=== PATIENT | female | born 1965 | race Caucasian/White ===

== ENCOUNTER 2019-05-01 11:00 | Outpatient (RCR) | payer SELFPAY | END 2019-05-31 00:01 | LOC: CR 11:00 | PROVIDERS: Family Provider Nurse Practitioner Family; Referring Provider Internal Medicine Cardiovascular Disease; Visit Provider Internal Medicine Cardiovascular Disease | DX: I25.2 Old myocardial infarction (principal) ==

== ENCOUNTER 2019-06-08 13:39 | Outpatient (RCR) | payer SELFPAY | END 2019-07-01 23:59 | disposition home or self-care (01) | LOC: CR 13:39 | PROVIDERS: Family Provider Nurse Practitioner Family; PCP Nurse Practitioner Family; Referring Provider Internal Medicine Cardiovascular Disease; Visit Provider Internal Medicine Cardiovascular Disease | DX: I25.2 Old myocardial infarction (principal) ==

== ENCOUNTER 2019-07-04 14:47 | Outpatient (RCR) | payer SELFPAY | END 2019-07-30 23:59 | disposition home or self-care (01) | LOC: CR 14:47 | PROVIDERS: Referring Provider Internal Medicine Cardiovascular Disease; Visit Provider Internal Medicine Cardiovascular Disease | DX: I25.2 Old myocardial infarction (principal) ==

== ENCOUNTER → 2019-11-15 09:15 | Outpatient (BNVA) | payer MEDICAID, SELFPAY | PROVIDERS: PCP Nurse Practitioner Family; Visit Provider Nurse Practitioner Family | DX: Z12.31 Encounter for screening mammogram for malignant neoplasm of breast (principal); I10 Essential (primary) hypertension; B37.2 Candidiasis of skin and nail | CPT/HCPCS: 80053; 80061; 84443; 85025 ==

== ENCOUNTER 2019-11-30 14:28 | Outpatient (RCR) | payer SELFPAY | END 2019-12-30 23:59 | disposition home or self-care (01) | LOC: CR 14:28 | PROVIDERS: PCP Nurse Practitioner Family; Referring Provider Internal Medicine Cardiovascular Disease; Visit Provider Internal Medicine Cardiovascular Disease | DX: I25.2 Old myocardial infarction (principal) ==

== ENCOUNTER 2020-01-02 11:28 | Outpatient (RCR) | payer SELFPAY | END 2020-01-30 23:59 | disposition home or self-care (01) | LOC: CR 11:28 | PROVIDERS: PCP Nurse Practitioner Family; Referring Provider Internal Medicine Cardiovascular Disease; Visit Provider Internal Medicine Cardiovascular Disease | DX: I25.2 Old myocardial infarction (principal) ==

== ENCOUNTER 2020-01-23 11:39 | Outpatient (CLI) | payer MEDICAID, SELFPAY ==
--- NOTE | 2020-01-23 14:00 | MM_ITS ---
WS: [id number] BILATERAL DIGITAL SCREENING MAMMOGRAM WITH CAD CLINICAL INFORMATION: breast cancer screening HISTORY: Screening mammogram. No current complaints. COMPARISON: TECHNIQUE: Bilateral CC and MLO views. FINDINGS: Fatty-replaced breasts bilaterally. No suspicious focal mass, asymmetry, calcifications, or sap integration architect ural distortion. No evidence of malignancy. A few stable intramammary lymph nodes. MM/[id number] IMPRESSION: BI-RADS: 2-Benign FOLLOW UP: 1 Year Follow-up Recommend return to annual screening mammography.
== END 2020-01-23 11:40 | disposition home or self-care (01) ==
LOC: RADSHAW 11:45
PROVIDERS: PCP Nurse Practitioner Family; Visit Provider Nurse Practitioner Family
DX: Z12.31 Encounter for screening mammogram for malignant neoplasm of breast (principal)
CPT/HCPCS: 77067

== ENCOUNTER 2020-02-16 14:32 | Outpatient (RCR) | payer SELFPAY | END 2020-02-29 23:59 | disposition home or self-care (01) | LOC: CR 14:32 | PROVIDERS: PCP Nurse Practitioner Family; Referring Provider Internal Medicine Cardiovascular Disease; Visit Provider Internal Medicine Cardiovascular Disease | DX: I21.9 Acute myocardial infarction, unspecified (principal) ==

== ENCOUNTER 2020-03-08 10:51 | Outpatient (RCR) | payer SELFPAY | END 2020-03-31 23:59 | disposition home or self-care (01) | LOC: CR 10:51 | PROVIDERS: PCP Nurse Practitioner Family; Referring Provider Internal Medicine Cardiovascular Disease; Visit Provider Internal Medicine Cardiovascular Disease | DX: Z95.1 Presence of aortocoronary bypass graft (principal) ==

== ENCOUNTER 2020-05-03 11:00 | Outpatient (RCR) | payer SELFPAY | END 2020-05-31 23:59 | disposition home or self-care (01) | LOC: CR 11:00 | PROVIDERS: PCP Nurse Practitioner Family; Referring Provider Internal Medicine Cardiovascular Disease; Visit Provider Internal Medicine Cardiovascular Disease | DX: Z95.1 Presence of aortocoronary bypass graft (principal) ==

== ENCOUNTER → 2020-05-11 10:00 | Outpatient (BNVA) | payer MEDICAID, SELFPAY | PROVIDERS: PCP Nurse Practitioner Family; Visit Provider Internal Medicine Cardiovascular Disease | DX: I48.11 Longstanding persistent atrial fibrillation (principal); I10 Essential (primary) hypertension; I25.10 Atherosclerotic heart disease of native coronary artery without angina pectoris; I25.5 Ischemic cardiomyopathy; R06.02 Shortness of breath | CPT/HCPCS: 80053; 80061 ==

== ENCOUNTER 2020-05-30 12:45 | Outpatient (CLI) | payer MEDICAID, SELFPAY ==
--- NOTE | 2020-05-30 13:30 | USCV_ITS ---
Angie Rosales Age: 55 Gender: F : 1965 Exam Date: 05/30/2020 13:29 Ordering Phys: Albert Suárez MD ([email or web address]) Technologist: Freda Velez Exam Location: [facility] – [place] Indication: SOB BP: / HR: 60 Rhythm: Sinus Technical Quality: Adequate MEASUREMENTS (Male / Female) Normal Values 2D ECHO LV Diastolic Diameter PLAX 4.7 cm 4.2 - 5.9 / 3.9 - 5.3 cm LV Systolic Diameter PLAX 3.7 cm LV Chamber Size 4.6 cm IVS Diastolic Thickness 1.2 cm 0.6 - 1.0 / 0.6 - 0.9 cm IVS Systolic Thickness 1.7 cm LVPW Diastolic Thickness 1.3 cm 0.6 - 1.0 / 0.6 - 0.9 cm LVPW Systolic Thickness 1.7 cm RV Chamber Size 3.6 cm LVOT Diameter 2.1 cm LV Ejection Fraction 2D Teich 43.7 % LV Ejection Fraction MOD 2C 70.1 % LV Ejection Fraction 2C AL 72.2 % LA Diameter 3.8 cm LA Width 3.2 cm LA Height 5.5 cm RA Width 4.4 cm RA Height 5.0 cm Aorta at Sinotubular Diameter 3.6 cm M-MODE LV Diastolic Diameter MM 6.3 cm 4.2 - 5.9 / 3.9 - 5.3 cm LV Systolic Diameter MM 4.7 cm LV Ejection Fraction MM Teich 50.8 % IVS Diastolic Thickness MM 1.1 cm 0.6 - 1.0 / 0.6 - 0.9 cm IVS Systolic Thickness MM 1.5 cm LVPW Diastolic Thickness MM 1.5 cm 0.6 - 1.0 / 0.6 - 0.9 cm LVPW Systolic Thickness MM 1.8 cm RV Diastolic Diameter MM 1.5 cm Aortic Annulus Diameter 3.5 cm LA Ao Ratio MM 1.2 MV E Point Septal Separation 1.5 cm DOPPLER AV Peak Velocity 129.0 cm/s LVOT Peak Velocity 72.0 cm/s AV Area Cont Eq vti 2.1 cm squared AV Area Cont Eq pk 1.9 cm squared MV Area PHT 3.3 cm squared Mitral E to A Ratio 0.9 MV E' Velocity 57.5 cm/s Mitral E to MV E' Ratio 17.0 Mitral E to LV E' Lateral Ratio 13.7 Mitral E to LV E' Septal Ratio 22.3 TR Peak Velocity 164.4 cm/s TR Peak Gradient 10.8 mmHg TR Mean Velocity 90.7 cm/s TR Mean Gradient 3.8 mmHg TR Velocity Time Integral 30.3 cm TV Peak E Velocity 80.0 cm/s Right Atrial Pressure 3.0 mmHg Pulmonary Artery Systolic Pressu 13.8 mmHg PV Peak Velocity 104.0 cm/s RV Acceleration Time 0.1 s RV Ejection Time 0.3 s RV AcT/ET 0.4 FINDINGS Left Ventricle Normal left ventricular cavity size. Increased left ventricular wall thickness. Mild concentric left ventricular hypertrophy. Low normal left ventricular systolic function. Left ventricular ejection fraction is estimated at 50-55 %. There is possibly mild septal hypokinesis. Grade II diastolic dysfunction, moderately elevated filling pressures. Abnormal (paradoxical) septal motion consistent with postoperative status. Right Ventricle Right ventricle not well visualized. Probably normal right ventricular systolic function. Right ventricular systolic pressure 19 mmHg. Right Atrium Right atrium not well visualized. Right atrial pressure estimated at 3 mm Hg. Left Atrium Normal left atrial size. Mitral Valve Thickened mitral valve. No mitral valve stenosis. No significant mitral valve regurgitation Aortic Valve Aortic valve not well visualized. No aortic valve stenosis. No aortic valve regurgitation. Tricuspid Valve Tricuspid valve not well visualized. Pulmonic Valve Pulmonic valve not well visualized. Mild pulmonary valve regurgitation. Pericardium No pericardial effusion. Aorta Normal-sized aortic root. Normal sized inferior vena cava. CONCLUSIONS 1. This is a technically very difficult study. 2. Normal left ventricular cavity size. Mild concentric left ventricular hypertrophy. Low normal left ventricular systolic function. Left ventricular ejection fraction is estimated at 50- 55 %. There is possibly mild septal hypokinesis. Grade II diastolic dysfunction, moderately elevated filling pressures. 3. No significant valvular abnormality. 4. When compared to old study dated 02/16/2017, left ventricular systolic function seems to have improved. Alondra Cordova MD (Electronically Signed) Final Date: 02 June 2020 13:15 S
== END 2020-05-30 12:46 | disposition home or self-care (01) ==
LOC: US 12:45
PROVIDERS: PCP Nurse Practitioner Family; Visit Provider Internal Medicine Cardiovascular Disease
DX: R06.02 Shortness of breath (principal)
CPT/HCPCS: 93306

== ENCOUNTER 2020-06-05 12:59 | Outpatient (RCR) | payer SELFPAY | END 2020-07-01 23:59 | disposition home or self-care (01) | LOC: CR 12:59 | PROVIDERS: PCP Nurse Practitioner Family; Referring Provider Internal Medicine Cardiovascular Disease; Visit Provider Internal Medicine Cardiovascular Disease | DX: Z95.1 Presence of aortocoronary bypass graft (principal) ==

== ENCOUNTER 2020-07-03 10:37 | Outpatient (RCR) | payer SELFPAY | END 2020-07-29 23:59 | disposition home or self-care (01) | LOC: CR 10:37 | PROVIDERS: PCP Nurse Practitioner Family; Referring Provider Internal Medicine Cardiovascular Disease; Visit Provider Internal Medicine Cardiovascular Disease | DX: Z95.1 Presence of aortocoronary bypass graft (principal) ==

== ENCOUNTER 2020-07-30 09:31 | Outpatient (RCR) | payer SELFPAY | END 2020-08-29 23:59 | disposition home or self-care (01) | LOC: CR 09:31 | PROVIDERS: PCP Nurse Practitioner Family; Referring Provider Internal Medicine Cardiovascular Disease; Visit Provider Internal Medicine Cardiovascular Disease | DX: Z95.1 Presence of aortocoronary bypass graft (principal) ==

== ENCOUNTER 2020-10-01 10:37 | Outpatient (RCR) | payer SELFPAY | END 2020-10-29 23:59 | disposition home or self-care (01) | LOC: CR 10:37 | PROVIDERS: PCP Nurse Practitioner Family; Referring Provider Internal Medicine Cardiovascular Disease; Visit Provider Internal Medicine Cardiovascular Disease | DX: I25.2 Old myocardial infarction (principal) ==

== ENCOUNTER 2020-10-30 14:17 | Outpatient (RCR) | payer SELFPAY | END 2020-11-28 23:59 | disposition home or self-care (01) | LOC: CR 14:17 | PROVIDERS: PCP Nurse Practitioner Family; Referring Provider Internal Medicine Cardiovascular Disease; Visit Provider Internal Medicine Cardiovascular Disease | DX: Z95.1 Presence of aortocoronary bypass graft (principal) ==

== ENCOUNTER 2020-12-06 13:51 | Outpatient (RCR) | payer MEDICAID, SELFPAY | END 2020-12-29 23:59 | disposition home or self-care (01) | LOC: CR 13:51 | PROVIDERS: PCP Nurse Practitioner Family; Referring Provider Internal Medicine Cardiovascular Disease; Visit Provider Internal Medicine Cardiovascular Disease | DX: Z95.1 Presence of aortocoronary bypass graft (principal) ==

== ENCOUNTER 2020-12-31 14:27 | Outpatient (RCR) | payer SELFPAY | END 2021-01-29 23:59 | disposition home or self-care (01) | LOC: CR 14:27 | PROVIDERS: PCP Nurse Practitioner Family; Referring Provider Internal Medicine Cardiovascular Disease; Visit Provider Internal Medicine Cardiovascular Disease | DX: Z95.1 Presence of aortocoronary bypass graft (principal) ==

== ENCOUNTER → 2021-01-24 10:47 | Outpatient (BNVA) | payer MEDICAID, SELFPAY | PROVIDERS: PCP Nurse Practitioner Family; Visit Provider Nurse Practitioner Family | DX: I10 Essential (primary) hypertension (principal); I25.10 Atherosclerotic heart disease of native coronary artery without angina pectoris; I48.91 Unspecified atrial fibrillation; Z12.11 Encounter for screening for malignant neoplasm of colon; Z12.31 Encounter for screening mammogram for malignant neoplasm of breast; Z00.00 Encounter for general adult medical examination without abnormal findings | CPT/HCPCS: 80053; 80061; 82607; 84443; 85025 ==

== ENCOUNTER 2021-01-28 11:33 | Outpatient (CLI) | payer MEDICAID, SELFPAY ==
--- NOTE | 2021-01-28 12:00 | MM_ITS ---
WS: [id number] BILATERAL SCREENING DIGITAL MAMMOGRAM WITH CAD HISTORY: Z12.31 - Encounter for screening mammogram for malignant ... COMPARISON: 01/23/2020, 10/15/2018 and 10/07/2017 Bilateral CC and MLO views submitted. Computer aided detection analyzed. Breast composition: There are scattered areas of fibroglandular density. No suspicious masses, microc alcifications or architectural distortion. Benign intramammary lymph nodes. MM/[id number] IMPRESSION: BI-RADS: 2-Benign FOLLOW UP: 1 Year Follow-up
== END 2021-01-28 11:34 | disposition home or self-care (01) ==
LOC: RADSHAW 11:38
PROVIDERS: PCP Nurse Practitioner Family; Visit Provider Nurse Practitioner Family
DX: Z12.31 Encounter for screening mammogram for malignant neoplasm of breast (principal); Z12.11 Encounter for screening for malignant neoplasm of colon
CPT/HCPCS: 77067; 82270

== ENCOUNTER 2021-01-31 15:01 | Outpatient (RCR) | payer SELFPAY | END 2021-02-28 23:59 | disposition home or self-care (01) | LOC: CR 15:01 | PROVIDERS: PCP Nurse Practitioner Family; Referring Provider Internal Medicine Cardiovascular Disease; Visit Provider Internal Medicine Cardiovascular Disease | DX: Z95.1 Presence of aortocoronary bypass graft (principal) ==

== ENCOUNTER 2021-03-01 10:36 | Outpatient (RCR) | payer SELFPAY | END 2021-03-31 23:59 | disposition home or self-care (01) | LOC: CR 10:36 | PROVIDERS: PCP Nurse Practitioner Family; Referring Provider Internal Medicine Cardiovascular Disease; Visit Provider Internal Medicine Cardiovascular Disease | DX: Z95.1 Presence of aortocoronary bypass graft (principal) ==

== ENCOUNTER → 2021-03-13 09:37 | Outpatient (BNVA) | payer MEDICAID, SELFPAY | PROVIDERS: PCP Nurse Practitioner Family | DX: E53.8 Deficiency of other specified B group vitamins (principal); Z23 Encounter for immunization | CPT/HCPCS: 82607 ==

== ENCOUNTER 2021-04-01 14:39 | Outpatient (RCR) | payer SELFPAY | END 2021-04-30 23:59 | disposition home or self-care (01) | LOC: CR 14:39 | PROVIDERS: PCP Nurse Practitioner Family; Referring Provider Internal Medicine Cardiovascular Disease; Visit Provider Internal Medicine Cardiovascular Disease | DX: Z95.1 Presence of aortocoronary bypass graft (principal) ==

== ENCOUNTER → 2021-04-16 09:53 | Outpatient (BNVA) | payer MEDICAID, SELFPAY | PROVIDERS: PCP Nurse Practitioner Family; Visit Provider Nurse Practitioner Family | DX: I10 Essential (primary) hypertension (principal); Z12.4 Encounter for screening for malignant neoplasm of cervix | CPT/HCPCS: 80053; 80061; 82607; 84443; 85025; 87624 ==

== ENCOUNTER 2021-05-01 13:45 | Outpatient (RCR) | payer SELFPAY | END 2021-05-31 23:59 | disposition home or self-care (01) | LOC: CR 13:45 | PROVIDERS: PCP Nurse Practitioner Family; Referring Provider Internal Medicine Cardiovascular Disease; Visit Provider Internal Medicine Cardiovascular Disease | DX: Z95.1 Presence of aortocoronary bypass graft (principal) ==

== ENCOUNTER 2021-06-03 11:29 | Outpatient (RCR) | payer SELFPAY | END 2021-07-01 23:59 | disposition home or self-care (01) | LOC: CR 11:29 | PROVIDERS: PCP Nurse Practitioner Family; Referring Provider Internal Medicine Cardiovascular Disease; Visit Provider Internal Medicine Cardiovascular Disease | DX: Z95.1 Presence of aortocoronary bypass graft (principal) ==

== ENCOUNTER 2021-07-02 09:58 | Outpatient (RCR) | payer SELFPAY | END 2021-07-29 23:59 | disposition home or self-care (01) | LOC: CR 09:58 | PROVIDERS: PCP Nurse Practitioner Family; Referring Provider Internal Medicine Cardiovascular Disease; Visit Provider Internal Medicine Cardiovascular Disease | DX: Z95.1 Presence of aortocoronary bypass graft (principal) ==

== ENCOUNTER 2021-07-30 13:47 | Outpatient (RCR) | payer SELFPAY | END 2021-08-29 23:59 | disposition home or self-care (01) | LOC: CR 13:47 | PROVIDERS: PCP Nurse Practitioner Family; Referring Provider Internal Medicine Cardiovascular Disease; Visit Provider Internal Medicine Cardiovascular Disease | DX: Z95.1 Presence of aortocoronary bypass graft (principal) ==

== ENCOUNTER → 2021-08-12 11:20 | Outpatient (BNVA) | payer MEDICAID, SELFPAY | PROVIDERS: PCP Nurse Practitioner Family; Visit Provider Nurse Practitioner Family | DX: K92.1 Melena (principal); I10 Essential (primary) hypertension; E53.8 Deficiency of other specified B group vitamins; K59.00 Constipation, unspecified; R00.1 Bradycardia, unspecified | CPT/HCPCS: 80053; 80061; 82270; 82607; 85025 ==

== ENCOUNTER 2021-08-30 14:20 | Outpatient (RCR) | payer MEDICAID, SELFPAY | END 2021-09-28 23:59 | disposition home or self-care (01) | LOC: CR 14:20 | PROVIDERS: PCP Nurse Practitioner Family; Referring Provider Internal Medicine Cardiovascular Disease; Visit Provider Internal Medicine Cardiovascular Disease | DX: Z95.1 Presence of aortocoronary bypass graft (principal) | CPT/HCPCS: 80053; 86705; 86706; 86709; 86803; 87340 ==

== ENCOUNTER → 2021-09-13 10:52 | Outpatient (BNVA) | payer MEDICAID, SELFPAY | PROVIDERS: PCP Nurse Practitioner Family; Visit Provider Internal Medicine Cardiovascular Disease | DX: I11.0 Hypertensive heart disease with heart failure (principal); I50.9 Heart failure, unspecified; I25.10 Atherosclerotic heart disease of native coronary artery without angina pectoris; I25.5 Ischemic cardiomyopathy; E78.5 Hyperlipidemia, unspecified; Z87.891 Personal history of nicotine dependence; Z79.82 Long term (current) use of aspirin; Z95.1 Presence of aortocoronary bypass graft | CPT/HCPCS: 99214 ==

== ENCOUNTER 2021-09-19 09:26 | Day surgery (SDC) | payer MEDICAID, SELFPAY ==
[2021-09-19 10:00] VITALS: BP 153/88; PULSE 58; RESP 16; TEMP 36.4; O2SAT 95
[2021-09-19] MEDS: sodium chloride 0.9% 1,000 ML 30 ML IV (10:05)
--- NOTE | 2021-09-19 10:31 | ANES.PREANE2 ---
Pre-Anesthetic Assessment Height/Weight: Height 1.57 m Temp Pulse Resp BP Pulse Ox 97.5 F L 58 L 16 153/88 95 09/19/21 10:00 09/19/21 10:00 09/19/21 10:00 09/19/21 10:00 09/19/21 10:00 Preop Diagnosis: Bleeding per rectum Operation Date: 09/19/21 11:00 Proposed Procedures p Colonoscopy 77377/k92.1(Not Applicable) - Tobi Duarte MD s EGD 07488/k92.1(Not Applicable) - Tobi Duarte MD Familial anesthetic complications: None Was Beta Mee taken within 24 hours: Yes Was Clonidine taken within 24 hours: N/A Last intake: Intake Last Liquid Date 09/18/21 Last Liquid Time 20:30 Last Solid Date 09/17/21 Last Solid Time 15:00 Social Tobacco and No alcohol Exam alert, oriented x 3 and regular rate & rhythm Airway Submandibular: within normal limits Cervical ROM: within normal limits Mallampati: Class II Dentition: loose Comments: Comments: Very poor dentition, multiple loose Pulmonary Asthma CV/HEM Atrial Fibrillation, Coronary Artery Disease and Hypertension Metabolic Hyperlipidemia and Morbid Obesity Anesthetic Plan ASA status: 3 Anesthesia: MAC Medications/Allergies Home Medications Medication Instructions Recorded Confirmed Last Taken Type loratadine 10 mg tablet (Claritin) 10 mg PO DAILY 11/04/19 09/19/21 09/18/21 History aspirin 81 mg tablet,delayed 81 mg PO DAILY #90 tab 04/04/20 09/19/21 09/12/21 Rx release (Adult Low Dose Aspirin) albuterol sulfate 90 mcg/actuation 2 puff INHALATION QID PRN #18 g 09/10/20 09/19/21 Unknown Rx aerosol inhaler (ProAir HFA) clopidogrel 75 mg tablet 75 mg PO DAILY #90 tab 03/27/21 09/19/21 09/12/21 Rx lisinopril 2.5 mg tablet 2.5 mg PO DAILY #90 tab 03/27/21 09/19/21 09/18/21 Rx metoprolol tartrate 25 mg tablet 25 mg PO BID #180 tab 03/27/21 09/19/21 09/19/21 Rx potassium chloride 20 mEq 20 meq PO BID #180 tab 03/27/21 09/19/21 Unknown Rx tablet,extended release(part/cryst) (Klor-Con M) simvastatin 40 mg tablet 40 mg PO DAILY #90 tab 03/27/21 09/19/21 Unknown Rx spironolactone 25 mg tablet 25 mg PO DAILY #90 tab 03/27/21 09/19/21 Unknown Rx mecobalamin (vitamin B12) 1,000 2,000 mcg SUBLINGUAL DAILY #180 tab 05/02/21 09/19/21 09/17/21 Rx mcg disintegrating tablet,sublingual furosemide 40 mg tablet 40 mg PO BID 09/17/21 09/19/21 09/18/21 History Allergies Allergy/AdvReac Type Severity Reaction Status Date / Time acetaminophen [From Roxicet] Allergy Unknown Unknown Verified 09/19/21 09:59 oxycodone Allergy Unknown Unknown Verified 09/19/21 09:59 Current Medications Generic Name Dose Route Start Last Admin Trade Name Freq PRN Reason Stop Dose Admin Sodium Chloride 1,000 mls @ 30 mls/hr 09/19/21 10:00 09/19/21 10:05 Sodium Chloride 0.9% IV 09/20/21 09:59 30 mls/hr .Q24H CYNTHIA Administration PFSH Anesthesia Medical History (Updated 09/15/21 @ 10:15 by Alondra Cordova MD) Atrial fibrillation CAD (coronary artery disease) Cardiomyopathy CHF (congestive heart failure) Hyperlipidemia Hypertension Surgical History (Updated 09/13/21 @ 11:34 by Alondra Cordova MD) H/O mitral valve repair History of colonoscopy History of hysterectomy History of laparoscopic cholecystectomy History of shoulder surgery History of surgery on arm Hx of CABG Family History Other Cancer Diabetes Social History Smoking and tobacco status: former smoker Second hand smoke exposure: No Alcohol intake: never Caregiver/support person: Yes (family) Lives independently: Yes Household members: family Marital status: service: No Current occupational status: unemployed and disabled History of recent travel: No Current gender identity: Female Special mick needs: No Agree to transfusion: Yes Data Anesthesia Cardiac Studies: Echocardiogram Ultrasound 05/30/20
--- NOTE | 2021-09-19 10:32 | W.PM.OPSUD ---
Surgery/Procedure H&P Update DATE OF PROCEDURE: September 19, 2021 DATE H&P PERFORMED: 08/21/21 H&P UPDATE INFORMATION: I have reviewed H&P completed within last 30 days, I have examined patient prior to procedure and No changes to prior documentation PREOP DIAGNOSIS: Bleeding per rectum PRIMARY INDICATION FOR PROCEDURE: The same PLANNED PROCEDURE: Operation Date: 09/19/21 11:00 Proposed Procedures p Colonoscopy 57173/k92.1(Not Applicable) - Tobi Duarte MD s EGD 85994/k92.1(Not Applicable) - Tobi Duarte MD
[2021-09-19 11:27] VITALS: BP 151/86; PULSE 73; RESP 18; TEMP 36.2; O2SAT 97
[2021-09-19 11:39] VITALS: BP 171/95; PULSE 66; RESP 18; TEMP 36.3; O2SAT 97
--- NOTE | 2021-09-19 11:59 | PC.NURSE ---
marivel called in to [facility], spoke to july
--- NOTE | 2021-09-19 14:52 | ANE.PACU2 ---
Inpatient post-anesthesia follow up: Airway intact: Yes Vital signs: Temperature 97.4 F Pulse Rate 66 Respiratory Rate 18 Blood Pressure 171/95 Pulse Oximetry 97 Oxygen Delivery Me thod Room Air Oxygen Flow Rate Fraction of Inspir ed Oxygen Hydration adequate: Yes Nausea and vomiting: No Pain level: 1 Mental status: Baseline
== END 2021-09-19 11:58 | disposition home or self-care (01) ==
PROVIDERS: PCP Nurse Practitioner Family; Visit Provider Surgery
PROC: 0DJD8ZZ Inspection of Lower Intestinal Tract, Via Natural or Artificial Opening Endoscopic (ICD-10-PCS; CPT 45378; principal; 2021-09-19 11:00)
PROC: 0DJ08ZZ Inspection of Upper Intestinal Tract, Via Natural or Artificial Opening Endoscopic (ICD-10-PCS; CPT 43235; 2021-09-19 11:00)
DX: K92.1 Melena (principal); K57.30 Diverticulosis of large intestine without perforation or abscess without bleeding; K64.4 Residual hemorrhoidal skin tags; K21.00 Gastro-esophageal reflux disease with esophagitis, without bleeding; K29.70 Gastritis, unspecified, without bleeding; J45.909 Unspecified asthma, uncomplicated; I48.91 Unspecified atrial fibrillation; I25.10 Atherosclerotic heart disease of native coronary artery without angina pectoris; E78.5 Hyperlipidemia, unspecified; E66.01 Morbid (severe) obesity due to excess calories; I11.0 Hypertensive heart disease with heart failure; I50.9 Heart failure, unspecified; Z87.891 Personal history of nicotine dependence
CPT/HCPCS: 43239; 45378; 88305; J2704; J7030

== ENCOUNTER → 2021-10-10 13:09 | Outpatient (BNVA) | payer MEDICAID, SELFPAY | PROVIDERS: PCP Nurse Practitioner Family; Visit Provider Surgery | DX: Z09 Encounter for follow-up examination after completed treatment for conditions other than malignant neoplasm (principal); K25.9 Gastric ulcer, unspecified as acute or chronic, without hemorrhage or perforation; K57.31 Diverticulosis of large intestine without perforation or abscess with bleeding; K21.9 Gastro-esophageal reflux disease without esophagitis | CPT/HCPCS: 99213 ==

== ENCOUNTER 2021-10-30 13:17 | Outpatient (RCR) | payer SELFPAY | END 2021-11-28 23:59 | disposition home or self-care (01) | LOC: CR 13:17 | PROVIDERS: PCP Nurse Practitioner Family; Referring Provider Internal Medicine Cardiovascular Disease; Visit Provider Internal Medicine Cardiovascular Disease | DX: Z95.1 Presence of aortocoronary bypass graft (principal) ==

== ENCOUNTER → 2021-12-10 10:15 | Outpatient (BNVA) | payer MEDICAID, SELFPAY | PROVIDERS: PCP Nurse Practitioner Family; Visit Provider Nurse Practitioner Family | DX: M25.521 Pain in right elbow (principal) | CPT/HCPCS: 73080 ==

== ENCOUNTER 2021-12-30 14:25 | Outpatient (RCR) | payer SELFPAY | END 2022-01-29 23:59 | disposition home or self-care (01) | LOC: CR 14:25 | PROVIDERS: PCP Nurse Practitioner Family; Referring Provider Internal Medicine Cardiovascular Disease; Visit Provider Internal Medicine Cardiovascular Disease | DX: Z95.1 Presence of aortocoronary bypass graft (principal) ==

== ENCOUNTER 2022-01-16 08:39 | Day surgery (SDC) | payer MEDICAID, SELFPAY ==
[2022-01-15 12:00] VITALS: BMI 36.9
[2022-01-16 08:59] VITALS: BP 134/80; PULSE 60; RESP 18; TEMP 36.1; O2SAT 98
--- NOTE | 2022-01-16 09:05 | P.ANESASSM_ITS ---
Pre-Anesthetic Assessment Height/Weight: Height 1.57 m Weight 91.626 kg Temp Pulse Resp BP Pulse Ox O2 Del Method 97 F L 60 18 134/80 98 01/16/22 08:59 01/16/22 08:59 01/16/22 08:59 01/16/22 08:59 01/16/22 08:59 01/16/22 08:59 Preop Diagnosis: Erosive gastritis and ulcers Operation Date: 01/16/22 10:00 Proposed Procedures p EGD 29000/K25.9(Not Applicable) - Tobi Duarte MD Familial anesthetic complications: None Was Beta Mee taken within 24 hours: Yes Was Clonidine taken within 24 hours: N/A Last intake: Intake Last Liquid Date 01/15/22 Last Liquid Time 19:00 Last Solid Date 01/15/22 Last Solid Time 17:00 Social Tobacco and No alcohol Exam alert, oriented x 3, clear to auscultation bilaterally and regular rate & rhythm Airway Mallampati: Class II Dentition: chipped and other (poor dentition) CV/HEM Atrial Fibrillation, Coronary Artery Disease and Hypertension GI Gastroesophageal Reflux Disease gastritis Metabolic Hyperlipidemia and Morbid Obesity Anesthetic Plan ASA status: 3 Anesthesia: MAC Risk of > 500 ml blood loss (7ml/kg in children): No Medications/Allergies Home Medications Medication Instructions Recorded Confirmed Last Taken Type loratadine 10 mg tablet (Claritin) 10 mg PO DAILY 11/04/19 01/15/22 01/15/22 History clopidogrel 75 mg tablet 75 mg PO DAILY #90 tabs 03/27/21 01/15/22 01/09/22 Rx lisinopril 2.5 mg tablet 2.5 mg PO DAILY #90 tabs 03/27/21 01/16/22 01/15/22 Rx metoprolol tartrate 25 mg tablet 25 mg PO BID #180 tabs 03/27/21 01/15/22 01/16/22 Rx potassium chloride 20 mEq 20 meq PO BID #180 tabs 03/27/21 01/15/22 01/15/22 Rx tablet,extended release(part/cryst) (Klor-Con M) mecobalamin (vitamin B12) 1,000 2,000 mcg sublingual DAILY #180 05/02/21 01/15/22 01/14/22 Rx mcg disintegrating tabs tablet,sublingual furosemide 40 mg tablet 40 mg PO BID 09/17/21 01/15/22 01/15/22 History rosuvastatin 40 mg tablet 40 mg PO .HS #90 tabs 09/19/21 01/15/22 01/15/22 Rx spironolactone 25 mg tablet 25 mg PO DAILY #90 tabs 11/04/21 01/15/22 01/15/22 Rx pantoprazole 40 mg tablet,delayed 40 mg PO DAILY 30 days #30 tabs 12/30/21 01/15/22 01/14/22 Rx release (Protonix) sucralfate 1 gram tablet 1 g PO QID 01/15/22 01/15/22 01/15/22 History Allergies Allergy/AdvReac Type Severity Reaction Status Date / Time acetaminophen [From Roxicet] Allergy Unknown Unknown Verified 01/15/22 11:49 oxycodone Allergy Unknown Unknown Verified 01/15/22 11:49 [facility] Anesthesia Medical History Atrial fibrillation CAD (coronary artery disease) Cardiomyopathy CHF (congestive heart failure) Hyperlipidemia Hypertension Surgical History H/O mitral valve repair History of colonoscopy History of hysterectomy History of laparoscopic cholecystectomy History of shoulder surgery History of surgery on arm Hx of CABG Family History Other Cancer Diabetes Social History Smoking and tobacco status: never smoked Second hand smoke exposure: No Alcohol intake: never Caregiver/support person: Yes (family) Lives independently: Yes Household members: family Marital status: service: No Current occupational status: unemployed and disabled History of recent travel: No Current gender identity: Female Special mick needs: No Agree to transfusion: Yes Data Anesthesia Cardiac Studies: Echocardiogram Ultrasound 05/30/20
--- NOTE | 2022-01-16 09:13 | W.PM.OPSFHP ---
Same Day Surgery H&P Indication for Procedure/HPI DATE OF PROCEDURE: January 16, 2022 CHIEF COMPLAINT/INDICATIONFOR SURGICAL PROCEDURE: Follow-up EGD PREOP DIAGNOSIS: Erosive gastritis and ulcers PLANNED PROCEDURE: Operation Date: 01/16/22 10:00 Proposed Procedures p EGD 36354/K25.9(Not Applicable) - Tobi Duarte MD 10/10/2021 Patient comes today for follow up.s/p EGD and Colonoscopy.was found to have? Erosive gastritis and overll feels better and colonoscopy showed diverticulosis with external hemrrhoids. 01/16/2022 Patient comes today for follow-up diagnostic EGD to ensure resolution of ulcers. Previous biopsy was obtained from the stomach and showed A.? Stomach, antrum , biopsy: ? Focal inactive gastritis. ? No H. pylori-like organisms identified. ? No activity identified. ? No intestinal metaplasia identified. ? No dysplasia or malignancy identified. ROS All systems have been reviewed negative except as for the above or per problem list. Medications/Allergies* Home Medications Medication Instructions Recorded Confirmed Type loratadine 10 mg tablet (Claritin) 10 mg PO DAILY 11/04/19 01/15/22 History furosemide 40 mg tablet 40 mg PO BID 09/17/21 01/15/22 History sucralfate 1 gram tablet 1 g PO QID 01/15/22 01/15/22 History Allergies/Adverse Reactions Allergy/AdvReac Type Severity Reaction Status Date / Time acetaminophen [From Roxicet] Allergy Unknown Unknown Verified 01/16/22 09:14 oxycodone Allergy Unknown Unknown Verified 01/16/22 09:14 Pertinent History/Comorbid Conditions* Medical History (Updated 12/10/21 @ 11:34 by Yumiko Lucio NP) Atrial fibrillation CAD (coronary artery disease) Cardiomyopathy CHF (congestive heart failure) Hyperlipidemia Hypertension Surgical History (Updated 09/13/21 @ 11:34 by Alondra Cordova MD) H/O mitral valve repair History of colonoscopy History of hysterectomy History of laparoscopic cholecystectomy History of shoulder surgery History of surgery on arm Hx of CABG Family History (Updated 11/04/19 @ 09:46 by Yvette Connors RN) Diabetes Cancer Social History Smoking and tobacco status: never smoked Second hand smoke exposure: No Alcohol intake: never Caregiver/support person: Yes (family) Lives independently: Yes Household members: family Marital status: service: No Current occupational status: unemployed and disabled History of recent travel: No Current gender identity: Female Special mick needs: No Agree to transfusion: Yes Pertinent Exam Findings alert, oriented x 3, regular rate & rhythm and procedure specific exam findings (Abdominal exam nontender nondistended soft) Recommendations Surgery/Procedure today (EGD with possible biopsy) Coding Level of Care Code Acute Transitional Nurse for Neeraj Mcgowan
[2022-01-16] MEDS: sodium chloride 0.9% 1,000 ML 30 ML IV (09:28)
[2022-01-16 10:03] VITALS: BP 145/81; PULSE 62; RESP 18; TEMP 36.4; O2SAT 97
[2022-01-16 10:14] VITALS: BP 128/78; PULSE 67; RESP 18; TEMP 36.2; O2SAT 97
--- NOTE | 2022-01-16 12:42 | ANE.PACU2 ---
Inpatient post-anesthesia follow up: Airway intact: Yes Vital signs: Temperature 97.2 F Pulse Rate 67 Respiratory Rate 18 Blood Pressure 128/78 Pulse Oximetry 97 Oxygen Delivery Me thod Room Air Oxygen Flow Rate Fraction of Inspir ed Oxygen Hydration adequate: Yes Nausea and vomiting: No Pain level: 1 Mental status: Baseline
== END 2022-01-16 10:27 | disposition home or self-care (01) ==
PROVIDERS: PCP Nurse Practitioner Family; Visit Provider Surgery
PROC: 0DJ08ZZ Inspection of Upper Intestinal Tract, Via Natural or Artificial Opening Endoscopic (ICD-10-PCS; CPT 43235; principal; 2022-01-16 10:00)
DX: K92.1 Melena (principal); K21.00 Gastro-esophageal reflux disease with esophagitis, without bleeding; K21.9 Gastro-esophageal reflux disease without esophagitis; K29.50 Unspecified chronic gastritis without bleeding; B96.81 Helicobacter pylori [H. pylori] as the cause of diseases classified elsewhere; I48.91 Unspecified atrial fibrillation; I25.10 Atherosclerotic heart disease of native coronary artery without angina pectoris; I10 Essential (primary) hypertension; E78.5 Hyperlipidemia, unspecified
CPT/HCPCS: 43239; 88305; 88342; J0330; J2704; J7030

== ENCOUNTER → 2022-01-24 10:09 | Outpatient (BNVA) | payer MEDICAID, SELFPAY | PROVIDERS: PCP Nurse Practitioner Family; Visit Provider Nurse Practitioner Family | DX: Z20.822 Contact with and (suspected) exposure to COVID-19 (principal); J06.9 Acute upper respiratory infection, unspecified; J40 Bronchitis, not specified as acute or chronic; R05.9 Cough, unspecified; J01.00 Acute maxillary sinusitis, unspecified | CPT/HCPCS: 87635 ==

== ENCOUNTER → 2022-01-29 10:52 | Outpatient (BNVA) | payer MEDICAID, SELFPAY | PROVIDERS: PCP Nurse Practitioner Family; Visit Provider Surgery | DX: Z09 Encounter for follow-up examination after completed treatment for conditions other than malignant neoplasm (principal); K57.31 Diverticulosis of large intestine without perforation or abscess with bleeding; K21.9 Gastro-esophageal reflux disease without esophagitis | CPT/HCPCS: 99213 ==

== ENCOUNTER 2022-01-30 12:28 | Outpatient (RCR) | payer SELFPAY | END 2022-02-28 23:59 | disposition home or self-care (01) | LOC: CR 12:28 | PROVIDERS: PCP Nurse Practitioner Family; Referring Provider Internal Medicine Cardiovascular Disease; Visit Provider Internal Medicine Cardiovascular Disease | DX: Z95.1 Presence of aortocoronary bypass graft (principal) ==

== ENCOUNTER → 2022-02-10 13:14 | Outpatient (BNVA) | payer MEDICAID, SELFPAY | PROVIDERS: PCP Nurse Practitioner Family; Visit Provider Nurse Practitioner Family | DX: I10 Essential (primary) hypertension (principal); L02.212 Cutaneous abscess of back [any part, except buttock and flank]; K21.9 Gastro-esophageal reflux disease without esophagitis; E78.5 Hyperlipidemia, unspecified; E53.8 Deficiency of other specified B group vitamins; Z12.31 Encounter for screening mammogram for malignant neoplasm of breast; I25.10 Atherosclerotic heart disease of native coronary artery without angina pectoris | CPT/HCPCS: 80053; 80061; 82607; 84443; 85025; 87070; 87075; 87205 ==

== ENCOUNTER 2022-02-17 10:22 | Outpatient (CLI) | payer MEDICAID, SELFPAY ==
--- NOTE | 2022-02-17 10:27 | MM_ITS ---
WS: [id number] BILATERAL SCREENING DIGITAL TOMOSYNTHESIS MAMMOGRAM WITH CAD HISTORY: Z12.31 - Encounter for screening mammogram for malignant neoplasm. COMPARISON: 01/28/2021, 01/23/2020 and 10/15/2018 Bilateral CC and MLO views with tomosynthesis and synthetic mammography submitted. Computer aided det ection analyzed. Breast composition: There are scattered areas of fibroglandular density. No suspicious masses, microc alcifications or architectural distortion. Benign scattered lymph nodes within each breast. No suspic ious or new mass or calcification. MM/[place] [id number] IMPRESSION: BI-RADS: 2-Benign FOLLOW UP: 1 Year Follow-up
== END 2022-02-17 10:23 | disposition home or self-care (01) ==
PROVIDERS: PCP Nurse Practitioner Family; Visit Provider Nurse Practitioner Family
DX: Z12.31 Encounter for screening mammogram for malignant neoplasm of breast (principal)
CPT/HCPCS: 77063; 77067

== ENCOUNTER → 2022-03-21 10:38 | Outpatient (BNVA) | payer MEDICAID, SELFPAY | PROVIDERS: PCP Nurse Practitioner Family; Visit Provider Internal Medicine Cardiovascular Disease | DX: I25.10 Atherosclerotic heart disease of native coronary artery without angina pectoris (principal); I25.5 Ischemic cardiomyopathy; I11.0 Hypertensive heart disease with heart failure; I50.9 Heart failure, unspecified; Z87.891 Personal history of nicotine dependence; E78.5 Hyperlipidemia, unspecified | CPT/HCPCS: 99214 ==

== ENCOUNTER 2022-04-04 14:08 | Outpatient (RCR) | payer SELFPAY | END 2022-04-30 23:59 | disposition home or self-care (01) | LOC: CR 14:08 | PROVIDERS: PCP Nurse Practitioner Family; Referring Provider Internal Medicine Cardiovascular Disease; Visit Provider Internal Medicine Cardiovascular Disease | DX: Z95.1 Presence of aortocoronary bypass graft (principal) ==

== ENCOUNTER 2022-05-20 13:23 | Outpatient (RCR) | payer SELFPAY | END 2022-05-31 23:59 | disposition home or self-care (01) | LOC: CR 13:23 | PROVIDERS: PCP Nurse Practitioner Family; Referring Provider Internal Medicine Cardiovascular Disease; Visit Provider Internal Medicine Cardiovascular Disease | DX: Z95.1 Presence of aortocoronary bypass graft (principal) ==

== ENCOUNTER 2022-06-04 10:47 | Outpatient (RCR) | payer SELFPAY | END 2022-07-01 23:59 | disposition home or self-care (01) | LOC: CR 10:47 | PROVIDERS: PCP Nurse Practitioner Family; Referring Provider Internal Medicine Cardiovascular Disease; Visit Provider Internal Medicine Cardiovascular Disease | DX: Z95.1 Presence of aortocoronary bypass graft (principal) ==

== ENCOUNTER 2022-07-02 11:39 | Outpatient (RCR) | payer SELFPAY | END 2022-07-29 23:59 | disposition home or self-care (01) | LOC: CR 11:39 | PROVIDERS: PCP Nurse Practitioner Family; Referring Provider Internal Medicine Cardiovascular Disease; Visit Provider Internal Medicine Cardiovascular Disease | DX: Z95.1 Presence of aortocoronary bypass graft (principal) ==

== ENCOUNTER 2022-07-30 12:59 | Outpatient (RCR) | payer SELFPAY | END 2022-08-29 23:59 | disposition home or self-care (01) | LOC: CR 12:59 | PROVIDERS: PCP Nurse Practitioner Family; Referring Provider Internal Medicine Cardiovascular Disease; Visit Provider Internal Medicine Cardiovascular Disease | DX: Z95.1 Presence of aortocoronary bypass graft (principal) ==

== ENCOUNTER 2022-09-01 11:58 | Outpatient (RCR) | payer SELFPAY | END 2022-09-28 23:59 | disposition home or self-care (01) | LOC: CR 11:58 | PROVIDERS: PCP Nurse Practitioner Family; Referring Provider Internal Medicine Cardiovascular Disease; Visit Provider Internal Medicine Cardiovascular Disease | DX: Z95.1 Presence of aortocoronary bypass graft (principal) ==

== ENCOUNTER 2022-09-29 14:13 | Outpatient (RCR) | payer SELFPAY | END 2022-10-29 23:59 | disposition home or self-care (01) | LOC: CR 14:13 | PROVIDERS: PCP Nurse Practitioner Family; Referring Provider Internal Medicine Cardiovascular Disease; Visit Provider Internal Medicine Cardiovascular Disease | DX: Z95.1 Presence of aortocoronary bypass graft (principal) ==

== ENCOUNTER 2022-10-31 11:45 | Outpatient (RCR) | payer SELFPAY | END 2022-11-28 23:59 | disposition home or self-care (01) | LOC: CR 11:45 | PROVIDERS: PCP Nurse Practitioner Family; Referring Provider Internal Medicine Cardiovascular Disease; Visit Provider Internal Medicine Cardiovascular Disease | DX: Z95.1 Presence of aortocoronary bypass graft (principal) ==

== ENCOUNTER 2022-12-01 07:51 | Outpatient (RCR) | payer SELFPAY | END 2022-12-29 23:59 | disposition home or self-care (01) | LOC: CR 07:51 | PROVIDERS: PCP Nurse Practitioner Family; Referring Provider Internal Medicine Cardiovascular Disease; Visit Provider Internal Medicine Cardiovascular Disease | DX: Z95.1 Presence of aortocoronary bypass graft (principal) ==

== ENCOUNTER → 2023-01-12 10:42 | Outpatient (BNVA) | payer MEDICAID, SELFPAY | PROVIDERS: PCP Nurse Practitioner Family; Visit Provider Nurse Practitioner Family | DX: E78.5 Hyperlipidemia, unspecified (principal); Z13.29 Encounter for screening for other suspected endocrine disorder; I10 Essential (primary) hypertension; E53.8 Deficiency of other specified B group vitamins | CPT/HCPCS: 80053; 80061; 82607; 84443; 85025 ==

== ENCOUNTER 2023-01-30 10:11 | Outpatient (RCR) | payer SELFPAY | END 2023-02-28 23:59 | disposition home or self-care (01) | LOC: CR 10:11 | PROVIDERS: PCP Nurse Practitioner Family; Referring Provider Internal Medicine Cardiovascular Disease; Visit Provider Internal Medicine Cardiovascular Disease | DX: Z95.1 Presence of aortocoronary bypass graft (principal) ==

== ENCOUNTER 2023-02-18 13:56 | Outpatient (CLI) | payer MEDICAID, SELFPAY ==
--- NOTE | 2023-02-18 14:04 | MM_ITS ---
WS: [id number] BILATERAL 3D TOMOSYNTHESIS DIGITAL SCREENING MAMMOGRAPHY WITH CAD CLINICAL INFORMATION: Z12.31 - Encounter for screening mammogram for malignant ... HISTORY: Screening mammogram. No current complaints. COMPARISON: 2021 TECHNIQUE: Bilateral CC and MLO views. FINDINGS: Scattered fibroglandular densities bilaterally. No suspicious focal mass, asymmetry, calcifications, or architectural distortion. No evidence of malignancy. Few stable incidental intramammary lymph node s. IMPRESSION: MM/[place] [id number] BI-RADS: 2-Benign FOLLOW UP: 1 Year Follow-up Recommend return to annual screening mammography.
== END 2023-02-18 13:57 | disposition home or self-care (01) ==
PROVIDERS: PCP Nurse Practitioner Family; Visit Provider Nurse Practitioner Family
DX: Z12.31 Encounter for screening mammogram for malignant neoplasm of breast (principal)
CPT/HCPCS: 77063; 77067

== ENCOUNTER 2023-03-03 09:58 | Outpatient (RCR) | payer SELFPAY | END 2023-03-31 23:59 | disposition home or self-care (01) | LOC: CR 09:58 | PROVIDERS: PCP Nurse Practitioner Family; Referring Provider Internal Medicine Cardiovascular Disease; Visit Provider Internal Medicine Cardiovascular Disease | DX: Z95.1 Presence of aortocoronary bypass graft (principal) ==

== ENCOUNTER → 2023-03-20 11:45 | Outpatient (BNVA) | payer MEDICAID, SELFPAY | PROVIDERS: PCP Nurse Practitioner Family; Visit Provider Internal Medicine Cardiovascular Disease | DX: I25.10 Atherosclerotic heart disease of native coronary artery without angina pectoris (principal); E78.5 Hyperlipidemia, unspecified; Z87.891 Personal history of nicotine dependence; I11.0 Hypertensive heart disease with heart failure; I50.9 Heart failure, unspecified | CPT/HCPCS: 99214 ==

== ENCOUNTER 2023-06-02 11:42 | Outpatient (RCR) | payer SELFPAY | END 2023-07-01 23:59 | disposition home or self-care (01) | LOC: CR 11:42 | PROVIDERS: PCP Nurse Practitioner Family; Referring Provider Internal Medicine Cardiovascular Disease; Visit Provider Internal Medicine Cardiovascular Disease | DX: Z95.1 Presence of aortocoronary bypass graft (principal) ==

== ENCOUNTER 2023-07-08 14:41 | Outpatient (RCR) | payer SELFPAY | END 2023-07-30 23:59 | disposition home or self-care (01) | LOC: CR 14:41 | PROVIDERS: PCP Nurse Practitioner Family; Referring Provider Internal Medicine Cardiovascular Disease; Visit Provider Internal Medicine Cardiovascular Disease | DX: Z95.1 Presence of aortocoronary bypass graft (principal) ==

== ENCOUNTER 2023-07-29 11:54 | Outpatient (CLI) | payer MEDICAID, SELFPAY ==
--- NOTE | 2023-07-29 13:00 | XR_ITS ---
WS: [id number] DEXA (DUAL ENERGY X-RAY ABSORPTIOMETRY) Bone mineral density was performed using a [employer] machine. HISTORY: Z78.0 - Asymptomatic menopausal state COMPARISON: None available. Lumbar spine BMD (L1-L4): 0.849 g/cm2 T score: -2.8 Z score: -2.5 Total hip BMD: Left: 0.781 g/cm2. T score: -1.8 Z score: -1.6 Right: 0.854 g/cm2. T score: -1.2 Z score: -1.0 10 year probability of a major osteoporotic fracture is 13.3%. IMPRESSION: OSTEOPOROSIS based upon the WHO classification for females.
== END 2023-07-29 11:55 | disposition home or self-care (01) ==
LOC: RAD 11:54
PROVIDERS: PCP Nurse Practitioner Family; Visit Provider Nurse Practitioner Family
DX: Z78.0 Asymptomatic menopausal state (principal); I10 Essential (primary) hypertension; E53.8 Deficiency of other specified B group vitamins
CPT/HCPCS: 77080; 80053; 80061; 82607; 84443; 85025

== ENCOUNTER 2023-07-31 15:22 | Outpatient (RCR) | payer SELFPAY | END 2023-08-30 23:59 | disposition home or self-care (01) | LOC: CR 15:22 | PROVIDERS: PCP Nurse Practitioner Family; Referring Provider Internal Medicine Cardiovascular Disease; Visit Provider Internal Medicine Cardiovascular Disease | DX: Z95.1 Presence of aortocoronary bypass graft (principal) ==

== ENCOUNTER 2023-12-21 11:50 | Outpatient (CLI) | payer MEDICAID, SELFPAY ==
--- NOTE | 2023-12-21 11:56 | XR_ITS ---
WS: [id number] XR foot LT min 3V* [id number] REASON FOR EXAM: M79.672 - Pain in left foot FINDINGS: No acute fracture is identified. The joint spaces of the forefoot, midfoot, and hindfoot are intact and relatively well preserved. No soft tissue abnormality. XR/XR foot LT min 3V* [id number] IMPRESSION: No acute abnormality.
== END 2023-12-21 11:51 | disposition home or self-care (01) ==
PROVIDERS: PCP Nurse Practitioner Family; Visit Provider Nurse Practitioner Family
DX: M79.672 Pain in left foot (principal)
CPT/HCPCS: 73630

== ENCOUNTER → 2024-01-11 11:09 | Outpatient (BNVA) | payer MEDICAID, SELFPAY | PROVIDERS: PCP Nurse Practitioner Family; Visit Provider Nurse Practitioner Family | DX: E53.8 Deficiency of other specified B group vitamins (principal); E78.5 Hyperlipidemia, unspecified | CPT/HCPCS: 80053; 80061; 82607; 83036; 85025 ==

== ENCOUNTER 2024-02-22 10:17 | Outpatient (CLI) | payer MEDICAID, SELFPAY ==
--- NOTE | 2024-02-22 10:30 | MM_ITS ---
WS: [id number] BILATERAL SCREENING DIGITAL TOMOSYNTHESIS MAMMOGRAM WITH CAD HISTORY: Z12.39 - Encounter for other screening for malignant neop... COMPARISON: 02/18/2023, 02/17/2022 and 01/23/2020 Bilateral CC and MLO views with tomosynthesis and synthetic mammography submitted. Computer aided det ection analyzed. Breast composition: There are scattered areas of fibroglandular density. No suspicious masses, microc alcifications or architectural distortion. Benign lymph nodes in each breast. Scattered round masses and partially obscured masses. These masses have been present on prior exams and are probably lymph n odes and/or cysts. MM/MM scr BI tomosynthesis [id number] IMPRESSION: BI-RADS: 2 - Benign. FOLLOW UP: 1 Year Follow-up
== END 2024-02-22 10:18 | disposition home or self-care (01) ==
LOC: RAD 10:17
PROVIDERS: PCP Nurse Practitioner Family; Visit Provider Nurse Practitioner Family
DX: Z12.31 Encounter for screening mammogram for malignant neoplasm of breast (principal); R92.323 Mammographic fibroglandular density, bilateral breasts
CPT/HCPCS: 77063; 77067

== ENCOUNTER → 2024-03-21 10:42 | Outpatient (BNVA) | payer MEDICAID, SELFPAY | PROVIDERS: PCP Nurse Practitioner Family; Visit Provider Internal Medicine Cardiovascular Disease | DX: R07.9 Chest pain, unspecified (principal); I25.10 Atherosclerotic heart disease of native coronary artery without angina pectoris; I11.0 Hypertensive heart disease with heart failure; I50.9 Heart failure, unspecified; Z98.890 Other specified postprocedural states; E78.5 Hyperlipidemia, unspecified; J98.4 Other disorders of lung; R94.31 Abnormal electrocardiogram [ECG] [EKG] | CPT/HCPCS: 36415; 80048; 83735; 93005 ==

== ENCOUNTER → 2024-07-14 11:43 | Outpatient (BNVA) | payer MEDICAID, SELFPAY | PROVIDERS: PCP Nurse Practitioner Family; Visit Provider Nurse Practitioner Family | DX: I10 Essential (primary) hypertension (principal) | CPT/HCPCS: 80053; 80061; 82306; 82607; 83036; 84443; 85025 ==

== ENCOUNTER → 2024-08-26 08:28 | Outpatient (BNVA) | payer MEDICAID, SELFPAY | PROVIDERS: PCP Nurse Practitioner Family; Visit Provider Physician Assistant | DX: S52.502A Unspecified fracture of the lower end of left radius, initial encounter for closed fracture (principal); X58.XXXA Exposure to other specified factors, initial encounter; Z46.89 Encounter for fitting and adjustment of other specified devices | CPT/HCPCS: 73110 ==

== ENCOUNTER 2024-09-01 10:40 | Day surgery (SDC) | payer MEDICAID, SELFPAY ==
[2024-09-01] VITALS (12 sets, daily range): BP systolic 138–166; BP diastolic 71–109; PULSE 58–79; RESP 14–22; TEMP 36.1–36.4; O2SAT 90–100; BMI 36.3
--- NOTE | 2024-09-01 | XR_ITS ---
WS: [id number] Exam: XR wrist LT 2V [id number] Date/Time of Exam: 09/01/2024 12:00 AM Reason For Exam: Left???distal???radius???open reduction internal fixation AP and lateral intraoperative C-arm images of the LEFT wrist are submitted. There is volar plate and screw fixation involving an impacted fracture of the distal radius. Alignment is satisfactory for healing.
--- NOTE | 2024-09-01 11:17 | W.PM.OPSUD ---
Surgery/Procedure H&P Update DATE OF PROCEDURE: September 01, 2024 DATE H&P PERFORMED: 08/26/24 H&P UPDATE INFORMATION: I have reviewed H&P completed within last 30 days, I have examined patient prior to procedure and No changes to prior documentation PREOP DIAGNOSIS: Left distal radius fracture PRIMARY INDICATION FOR PROCEDURE: Left distal radius fracture displaced and angulated PLANNED PROCEDURE: Operation Date: 09/01/24 12:30 Proposed Procedures p left distal radius open reduction internal fixation(Left) - Harlan Ozuna DO
[2024-09-01] MEDS: ketorolac 30 mg/mL INJ IVP (11:23)
[2024-09-01] MEDS: acetaminophen 1,000 MG/100 ML PIGGYBACK 400 MG IV (11:23)
[2024-09-01] MEDS: sodium chloride 0.9% 1,000 ML 30 ML IV (11:24)
--- NOTE | 2024-09-01 11:49 | SUR.PREOP ---
11:35 LEFT INTASCALENE NERVE BLOCK PERFORMED BY DOCTOR Carrera USING 30ML OF 0.5% ROPIVACAINE WITH 4mg OF DECADRON. PT ON SOCK FOLDER SHOWING NSR. PT TOLERATTED PROCEDURE WELL.
--- NOTE | 2024-09-01 11:49 | ANES.PREANE2 ---
Pre-Anesthetic Assessment Height/Weight: Height 1.57 m Weight 90.265 kg Temp Pulse Resp BP Pulse Ox O2 Del Method 97.3 F L 58 L 18 138/71 95 Room Air 09/01/24 10:57 09/01/24 10:57 09/01/24 10:57 09/01/24 10:57 09/01/24 10:57 09/01/24 11:05 Preop Diagnosis: Left distal radius fracture Operation Date: 09/01/24 12:30 Proposed Procedures p left distal radius open reduction internal fixation(Left) - Harlan Ozuna DO Familial anesthetic complications: States she had to remain intubated for 2 weeks after gallbladder surgery due to her heart, no other details Was Beta Mee taken within 24 hours: N/A Was Clonidine taken within 24 hours: N/A Last intake: Intake Last Liquid Date 08/31/24 Last Liquid Time 22:30 Last Solid Date 08/31/24 Last Solid Time 16:30 Social No alcohol and No tobacco Exam alert, oriented x 3, clear to auscultation bilaterally and regular rate & rhythm Airway Mallampati: Class IV CV/HEM Atrial Fibrillation, Coronary Artery Disease (CABG multiple stents) and Congestive Heart Failure (Hx very low ef after heart surgery) MVP Echo 2019 CONCLUSIONS 1. This is a technically very difficult study. 2. Normal left ventricular cavity size. Mild concentric left ventricular hypertrophy. Low normal left ventricular systolic function. Left ventricular ejection fraction is estimated at 50- 55 %. There is possibly mild septal hypokinesis. Grade II diastolic dysfunction, moderately elevated filling pressures. 3. No significant valvular abnormality. 4. When compared to old study dated 02/16/2017, left ventricular systolic function seems to have improved. GI Gastroesophageal Reflux Disease Anesthetic Plan ASA status: 4 Anesthesia: General and Regional (specify below) Risk of > 500 ml blood loss (7ml/kg in children): No Medications/Allergies Home Medications ?Medication ?Instructions ?Recorded ?Confirmed ?Last Taken ?Type loratadine 10 mg tablet (Claritin) 10 mg PO DAILY 11/04/19 08/31/24 08/30/24 History mecobalamin (vitamin B12) 1,000 2,000 mcg (2 x 1,000 mcg) 05/02/21 08/31/24 08/30/24 Rx mcg disintegrating sublingual DAILY #180 tabs tablet,sublingual albuterol sulfate 90 mcg/actuation 2 puff inhalation Q6H PRN 10/22/23 08/31/24 03/16/24 Rx aerosol inhaler shortness of breath or wheezing #8.5 grams clopidogrel 75 mg tablet 75 mg PO DAILY #90 tabs 01/11/24 08/31/24 08/26/24 Rx furosemide 40 mg tablet 40 mg PO BID #180 tabs 01/11/24 08/31/24 08/31/24 Rx lisinopril 2.5 mg tablet 2.5 mg PO DAILY #90 tabs 01/11/24 08/31/24 08/31/24 Rx metoprolol tartrate 25 mg tablet 25 mg PO BID #180 tabs 01/11/24 08/31/24 08/31/24 Rx potassium chloride 20 mEq 20 meq PO BID #180 tabs 01/11/24 08/31/24 08/31/24 Rx tablet,extended release(part/cryst) (Klor-Con M) rosuvastatin 40 mg tablet 40 mg PO .HS #90 tabs 01/11/24 08/31/24 08/31/24 Rx spironolactone 25 mg tablet 25 mg PO DAILY #90 tabs 01/11/24 08/31/24 08/31/24 Rx sucralfate 1 gram tablet See Rx Instructions .Route 02/02/24 08/31/24 08/31/24 Rx .COMPLEX #60 tabs furosemide 20 mg tablet See Rx Instructions .Route 08/19/24 08/31/24 08/31/24 Rx .COMPLEX #30 tabs left volar fast form #1 ea 08/26/24 08/26/24 Unknown Rx alendronate 70 mg tablet (Fosamax) See Rx Instructions .Route .COMPLEX 08/31/24 08/31/24 08/25/24 History famotidine 40 mg tablet (Pepcid) See Rx Instructions .Route .COMPLEX 08/31/24 08/31/24 08/31/24 History Allergies Allergy/AdvReac Type Severity Reaction Status Date / Time oxycodone Allergy Unknown Unknown Verified 08/26/24 08:42 acetaminophen (From Roxicet) Allergy ADR-Itching Verified 09/01/24 10:49 Current Medications Generic Name Dose Route Start Last Admin Trade Name Freq PRN Reason Stop Dose Admin Sodium Chloride 1,000 mls @ 30 mls/hr 09/01/24 10:45 09/01/24 11:24 Sodium Chloride 0.9% IV 09/02/24 10:44 30 mls/hr .Q24H CYNTHIA Administration PFSH Anesthesia Medical History Hyperlipidemia Hypertension CHF (congestive heart failure) Cardiomyopathy CAD (coronary artery disease) Atrial fibrillation Surgical History H/O mitral valve repair History of hysterectomy History of surgery on arm History of shoulder surgery History of laparoscopic cholecystectomy History of colonoscopy Hx of CABG Family History Other Cancer Diabetes Social History Smoking and tobacco/nicotine status: never used tobacco/nicotine Quit status (tobacco/nicotine): has quit using Year quit tobacco: 2015 Second hand smoke exposure: No Alcohol intake: never Substance/Drug Use: never Caregiver/support person: Yes (family) Lives independently: Yes Household members: family Marital status: service: No Current occupational status: unemployed and disabled Current gender identity: Female Special mick needs: No Agree to transfusion: Yes Data Anesthesia Cardiac Studies: Echocardiogram Ultrasound 05/30/20
[2024-09-01] MEDS: ceFAZolin 2,000 mg SDV 2000 MG IVP (11:52)
--- NOTE | 2024-09-01 13:09 | P.BOP_ITS ---
Date of Procedure:09/01/24 Surgeon: Harlan Ozuna DO Gang Saw Operator(s): Damon Ozuna PA-C Procedure(s) performed: Left distal radius open reduction internal fixation (2 part extra-articular) Findings of the procedure(s): Patient found to have 2 part extra-articular displaced and angulated left distal radius fracture underwent ORIF as planned without issues or complications. Taken back to PACU stable condition splint in place. Estimated blood loss: 10 mL Specimen(s) removed: None Post-operative diagnosis: Left distal radius fracture displaced and angulated
--- NOTE | 2024-09-01 13:10 | PM.OP ---
Operative Report Date of procedure: September 01, 2024 Surgeon: Harlan Ozuna DO [employer] Box Shop Supervisor: Damon Ozuna PA-C: PA was necessary for assistance in this case with hand positioning to execute the procedure, retraction and protection of neurovascular structures as well as to assist with wound closure and dressing application. Procedure: Preop Diagnosis ?Left?distal?radius?fracture,2part extra articular ? Procedure: Post-op diagnosis: Same, 2 part extra-articular Procedure done: Left?distal?radius?open reduction internal fixation, 2-part extra-articular Implants: ?Arthrex left 3-hole narrow volar locking plate Combination of locking and nonlocking screws 2.7 mm?distal Combination of locking and nonlocking screws 3.5 mm proximal Surgeon: Harlan Ozuna DO Anesthesia: General and nerve Block (Regional) Estimated blood loss: 10 mL Tourniquet time: 40 minutes IV fluids: See anesthesia record Complications: None Findings: See operative report narrative Condition: stable Disposition: same day Brief History: Patient is a 59-year-old female who presented to ortho office for a [id number] left?distal?radius?fracture.? Patient has significant comminution and shortening as well as dorsal angulation patient active and at this point time through shared decision making patient like to proceed with a left?distal?radius?ORIF.? We had a detailed discussion in the office about nonoperative and operative intervention.? At this point time I feel through shared decision? best option would be open reduction internal fixation she is active and already has a considerable deformity?? as result through shared decision making patient would like to proceed with ORIF left?distal?radius?fracture.? Detail the risk benefits complication alternatives to treatment option.? Understanding risk for surgery patient elects to proceed with surgical intervention.? All questions been answered at this time. Procedure: Patient seen and evaluated in the preoperative holding area.? Consent reviewed and signed with patient.? Correct extremities were marked and consent was reviewed and signed.? Patient was seen and evaluated by anesthesia department.? Underwent regional anesthesia. Once cleared for surgery pt was taken back to the operative suite.? Patient was then transported into the operative suite and kept on the OR gurney, all bony prominences well-padded patient was appropriate secured to bed in supine position.? An armboard was applied to the left upper extremity.? The left upper extremity had a nonsterile tourniquet applied.? Patient subsequently was then prepped and draped in narrow orthopedic fashion she underwent anesthesia per the anesthesia department.? A final timeout was performed.? Patient received appropriate preoperative antibiotics. Esmarch was used exsanguinate the left upper extremity and tourniquet was insufflated to 250 mmHg. A narrow modified FCR volar approach was performed to the left?distal?radius.? Sharp scalpel incision through skin and subcutaneous tissue.? I then switched to Littler dissection scissors identify the FCR tendon releases out of the sheath both proximally and?distally mobilized the tendon ulnarly and then subsequently incised the floor of the FCR tendon sheath with care to just incise the floor.? I then bluntly sweep the FPL tendon muscle belly ulnarly and placed blunt self-retaining retractor.? At this point time I direct visualization of the pronator quadratus which was incised in narrow L fashion off the radial and?distal?border in the?distal?radius?and fracture site was scraped clean of interposed muscle belly.? I then identified the 2 part extra-articular?distal?radius?fracture.? This was subsequently opened above and freed of interposing muscle belly as well as periosteum and fracture hematoma.? I did have to utilize my [place] which was placed through the fracture pattern and disengage the fracture and performed manual manipulation and anatomic reduction of the?distal?radius?fracture.? ?Once satisfied with reduction and had appropriate anatomic reduction of the volar cortex.? This was confirmed with mini C arm in multiple orthogonal imaging.? At this point time? I selected a Arthrex anatomic?distal?radius?plate utilizing a left narrow 3-hole plate which would have appropriate spread?distally.? This was then placed up to the?distal?radius?while maintaining my reduction, pins were placed?distally and proximally to confirm appropriate placement of the plate along the?distal?radius.? Minor adjustments were made and once I was satisfied I then subsequently drilled a bicortical 3.5 screw proximally in the oblong hole to allow for appropriate sliding of the?distal?radius?plate appropriately to perfect position on the?distal?radius.? This had excellent fixation and purchase and brought the plate to bone.? While maintaining my reduction I then confirmed in multiple orthogonal imaging that my plate was in appropriate position.? Once satisfied with my position I then subsequently placed the peek targeting guide on the?distal?locking screws with Arthrex.? The locking guide was then subsequently loaded and I subsequently drilled and placed a fully threaded cortical screw to compress the plate to bone for the?distal?fracture fragment.? This was performed with plan to then remove this and placed a shorter locking screw had bicortical fixation with excellent purchase and appropriate reduction of my volar tilt and bringing plate to bone of the?distal?fragment and plate.? Once I was satisfied with my plate position as well as reduction of the?distal?radius?which was confirmed on AP oblique and lateral imaging I then subsequently drilled measured and placed 3 locking screws around this cortical screw.? Then I subsequently removed the cortical screw and placed a shorter locking screw that did not penetrate the dorsal cortex.?? This completed my?distal?fixation.? I did utilize mini C arm to confirm appropriate placement of the screws these were all within the?distal?radius?and no joint involvement within the radiocarpal joint or the DRUJ.? These had appropriate subchondral support and maintenance of reduction and fixation of the?distal?radius?fracture.? ?I then turned my attention proximally and then I screwed in the locking guides for my final to screws proximally these were then subsequently drilled measured and appropriate length locking screws were then placed proximally with excellent fixation and locking technology into the plate.? This completed my construct.? The peek guide was subsequently removed and final imaging of the left?distal?radius?open reduction internal fixation was taken of AP lateral as well and is orthogonal imaging.? I then took a inclination view which showed my radial styloid screw was out of the penetration of the joint.? All my?distal?screws were appropriate length did not penetrate dorsal cortex and did not penetrate the joint.? This completed my fixation.? Smooth wrist range of motion was then noted with no evidence of clicking. Wrist was then taken through pronation supination and stressed the DRUJ which was found to be stable.? The wound was then thoroughly irrigated.? Tourniquet was then subsequently deflated.? Hemostasis satisfactory with bipolar electrocautery.? I then subsequently placed interrupted 3-0 Vicryl sutures for subcutaneous tissue and then subsequently placed a nylon the skin for closure.? Incision was then dressed with Xeroform 4 x 4's Kerlix cast padding and a volar Ortho-Glass splint was then applied with Bowen wrap and placed in a sling.? Disposition: Patient taken to PACU in stable condition recovering well receive appropriate discharge instructions as well as pain medication postoperatively.? Maintain splint until follow-up.? Nonweightbearing to operative upper extremity We will follow-up with ortho in the office in 2 weeks.? If any questions or concerns feel free to contact the office.
--- NOTE | 2024-09-01 13:24 | PM.PACU ---
PACU note Narrative: Patient is a 59-year-old female who just underwent a left wrist ORIF. Patient transferred to PACU in stable condition. Pain is well controlled. Dressing on hand is dry and in place. Patient's fingers are warm and well-perfused. Patient can wiggle fingers. normal cap refill under 2 seconds. Patient is in sling and unable to do any further assessment on motor. Exam: awake Disposition: discharged
== END 2024-09-01 15:01 | disposition home or self-care (01) ==
PROVIDERS: PCP Nurse Practitioner Family; Visit Provider Student in an Organized Health Care Education/Training Program
PROC: (CPT 25608; principal; 2024-09-01 12:30)
DX: S52.572A Other intraarticular fracture of lower end of left radius, initial encounter for closed fracture (principal); I48.91 Unspecified atrial fibrillation; I25.10 Atherosclerotic heart disease of native coronary artery without angina pectoris; Z95.5 Presence of coronary angioplasty implant and graft; Z95.1 Presence of aortocoronary bypass graft; K21.9 Gastro-esophageal reflux disease without esophagitis; Z79.899 Other long term (current) drug therapy; Z79.02 Long term (current) use of antithrombotics/antiplatelets; Z88.5 Allergy status to narcotic agent; E78.5 Hyperlipidemia, unspecified; I11.0 Hypertensive heart disease with heart failure; I50.9 Heart failure, unspecified; Z87.891 Personal history of nicotine dependence; W01.0XXA Fall on same level from slipping, tripping and stumbling without subsequent striking against object, initial encounter
CPT/HCPCS: 25608; 73100; 76000; C1713; J0131; J0690; J1100; J1885; J2704; J2795; J3010; J7030

== ENCOUNTER → 2024-09-14 14:09 | Outpatient (BNVA) | payer MEDICAID, SELFPAY | PROVIDERS: PCP Nurse Practitioner Family; Visit Provider Physician Assistant | DX: Z98.890 Other specified postprocedural states (principal); Z87.81 Personal history of (healed) traumatic fracture | CPT/HCPCS: 73110 ==

== ENCOUNTER → 2024-09-28 13:30 | Outpatient (BNVA) | payer MEDICAID, SELFPAY | PROVIDERS: PCP Nurse Practitioner Family; Visit Provider Physician Assistant | DX: Z98.890 Other specified postprocedural states (principal); Z87.81 Personal history of (healed) traumatic fracture; S52.502D Unspecified fracture of the lower end of left radius, subsequent encounter for closed fracture with routine healing; X58.XXXD Exposure to other specified factors, subsequent encounter | CPT/HCPCS: 73110 ==

== ENCOUNTER → 2024-11-01 08:49 | Outpatient (BNVA) | payer MEDICAID, SELFPAY | PROVIDERS: PCP Nurse Practitioner Family; Visit Provider Physician Assistant | DX: Z98.890 Other specified postprocedural states (principal); S52.502D Unspecified fracture of the lower end of left radius, subsequent encounter for closed fracture with routine healing; X58.XXXD Exposure to other specified factors, subsequent encounter | CPT/HCPCS: 73110 ==

== ENCOUNTER → 2024-12-13 08:51 | Outpatient (BNVA) | payer MEDICAID, SELFPAY | PROVIDERS: PCP Nurse Practitioner Family; Visit Provider Physician Assistant | DX: Z98.890 Other specified postprocedural states (principal); S52.502D Unspecified fracture of the lower end of left radius, subsequent encounter for closed fracture with routine healing; X58.XXXD Exposure to other specified factors, subsequent encounter | CPT/HCPCS: 73110; 99213 ==

== ENCOUNTER → 2025-01-12 10:37 | Outpatient (BNVA) | payer MEDICAID, SELFPAY | PROVIDERS: PCP Nurse Practitioner Family; Visit Provider Nurse Practitioner Family | DX: I10 Essential (primary) hypertension (principal); E53.8 Deficiency of other specified B group vitamins; M81.0 Age-related osteoporosis without current pathological fracture | CPT/HCPCS: 80053; 80061; 82306; 82607; 83036; 84443; 85025 ==

== ENCOUNTER → 2025-01-24 09:02 | Outpatient (BNVA) | payer MEDICAID, SELFPAY | PROVIDERS: PCP Nurse Practitioner Family; Visit Provider Nurse Practitioner Family | DX: Z53.9 Procedure and treatment not carried out, unspecified reason (principal) | CPT/HCPCS: 83036 ==

== ENCOUNTER 2025-02-22 08:36 | Outpatient (CLI) | payer MEDICAID, SELFPAY ==
--- NOTE | 2025-02-22 08:41 | MM_ITS ---
WS: [id number] SCREENING DIGITAL BREAST TOMOSYNTHESIS MAMMOGRAM WITH CAD HISTORY: SCREENING COMPARISON: 02/22/2024, 02/18/2023, 10/15/2018, 01/28/2021 Bilateral CC and MLO with tomosynthesis and synthetic mammography submitted. Computer aided detection analyzed. Breast composition: There are scattered areas of fibroglandular density. Benign lymph nodes in each breast are stable. There is a new area of increasing asymmetry in the upper outer quadrant of the LEFT breast at a middle depth. This asymmetry is ill-defined measuring 12 x 8 x 10 mm. No distortion. There are a few associated calcifications. MM/MM scr BI tomosynthesis [id number] IMPRESSION: BI-RADS: 0 - Incomplete: Need additional imaging evaluation. FOLLOW UP: Need Additional Imaging LEFT breast: Spot compression views (CC and MLO). True ML. Ultrasound to follow if abnormality persists.
== END 2025-02-22 08:37 | disposition home or self-care (01) ==
PROVIDERS: PCP Nurse Practitioner Family; Visit Provider Nurse Practitioner Family
DX: Z12.31 Encounter for screening mammogram for malignant neoplasm of breast (principal); R92.323 Mammographic fibroglandular density, bilateral breasts; R92.1 Mammographic calcification found on diagnostic imaging of breast; N64.89 Other specified disorders of breast
CPT/HCPCS: 77063; 77067

== ENCOUNTER 2025-03-14 09:31 | Outpatient (CLI) | payer MEDICAID, SELFPAY ==
--- NOTE | 2025-03-14 09:30 | MM_ITS ---
WS: [id number] ADDITIONAL VIEWS LEFT MAMMOGRAM WITH DIGITAL BREAST TOMOSYNTHESIS. LEFT breast ultrasound, limited. HISTORY: Asymmetry in the upper outer quadrant middle depth of the LEFT breast. COMPARISON: 02/22/2025, 02/22/2024, 02/18/2023, 02/17/2022 Spot compression views LEFT breast in CC, MLO projections and true ML submitted with digital breast tomosynthesis and SM. Breast composition: There are scattered areas of fibroglandular density. Asymmetry persists in the upper outer quadrant of the LEFT breast at a middle depth. There are a few central calcifications within the asymmetry. The asymmetry measures 5 x 9 x 8 mm. There are a few additional smaller surrounding well-circumscribed masses which have been present on prior studies and may be cysts or lymph nodes. There is no distortion. LEFT breast ultrasound, limited. No ultrasound abnormality in the LEFT breast. No areas of shadowing. There is no mass. MM/MM diag LT tomosynthesis [id number] IMPRESSION: BI-RADS: 3 - Probably Benign. FOLLOW UP: 6 Month Follow-up Recommend 6-month LEFT breast diagnostic mammogram to reevaluate the asymmetry that appears slightly more prominent as compared to prior studies in the upper outer quadrant.
--- NOTE | 2025-03-14 10:00 | US_ITS ---
WS: [id number] ADDITIONAL VIEWS LEFT MAMMOGRAM WITH DIGITAL BREAST TOMOSYNTHESIS. LEFT breast ultrasound, limited. HISTORY: Asymmetry in the upper outer quadrant middle depth of the LEFT breast. COMPARISON: 02/22/2025, 02/22/2024, 02/18/2023, 02/17/2022 Spot compression views LEFT breast in CC, MLO projections and true ML submitted with digital breast tomosynthesis and SM. Breast composition: There are scattered areas of fibroglandular density. Asymmetry persists in the upper outer quadrant of the LEFT breast at a middle depth. There are a few central calcifications within the asymmetry. The asymmetry measures 5 x 9 x 8 mm. There are a few additional smaller surrounding well-circumscribed masses which have been present on prior studies and may be cysts or lymph nodes. There is no distortion. LEFT breast ultrasound, limited. No ultrasound abnormality in the LEFT breast. No areas of shadowing. There is no mass. US/US breast LT limited* [id number] IMPRESSION: BI-RADS: 3 - Probably Benign. FOLLOW UP: 6 Month Follow-up Recommend 6-month LEFT breast diagnostic mammogram to reevaluate the asymmetry that appears slightly more prominent as compared to prior studies in the upper outer quadrant.
== END 2025-03-14 09:32 | disposition home or self-care (01) ==
LOC: RAD 09:33
PROVIDERS: PCP Nurse Practitioner Family; Visit Provider Nurse Practitioner Family
DX: R92.8 Other abnormal and inconclusive findings on diagnostic imaging of breast (principal); N64.89 Other specified disorders of breast; R92.1 Mammographic calcification found on diagnostic imaging of breast; R92.322 Mammographic fibroglandular density, left breast
CPT/HCPCS: 76642; 77061; G0279

== ENCOUNTER → 2025-05-02 10:35 | Outpatient (BNVA) | payer MEDICAID, SELFPAY | PROVIDERS: PCP Nurse Practitioner Family; Visit Provider Nurse Practitioner Family | DX: I25.10 Atherosclerotic heart disease of native coronary artery without angina pectoris (principal); I10 Essential (primary) hypertension; I42.9 Cardiomyopathy, unspecified; I48.91 Unspecified atrial fibrillation; Z79.02 Long term (current) use of antithrombotics/antiplatelets; E78.5 Hyperlipidemia, unspecified; Z98.890 Other specified postprocedural states; Z95.1 Presence of aortocoronary bypass graft; Z87.891 Personal history of nicotine dependence | CPT/HCPCS: 99214 ==